=== PATIENT | male | born 1950 | race Caucasian/White ===

== ENCOUNTER → 2016-11-19 | Outpatient (CLI) | payer OTHER, MEDICARE, BC ==
[2016-11-19] VITALS (8 sets, daily range): BP systolic 130–146; BP diastolic 48–79; PULSE 45–55
[~2016-11-19] VITALS: Ht 175.3 cm; Wt 82.1 kg
[~2016-11-19] MED LIST: ANTIVERT 12.512.5 MG PO; ASPIRIN 81M81 MG/TA2 PO; DESYREL 100MG100 MG PO; FLOMAX 0.40.4 MG/CAP PO; LEXAPRO20 MG PO; LIPITOR 40MG TA40 MG PO; MELAT3MGTAB PO; MINIPRESS2 MG PO; MULTI VITAMINS1 TAB PO; NATURE'S BLEN1000 IU PO; NORVASC 10MG10 MG; NORVASC 10MG10 MG PO; NYSTATIN OR100 MU/ML PO; PRAVACHOL 20MG20 MG PO; PROTONIX 40MG T40 MG PO; RT SPIRIVA18 MCG IH; SALAGEN 5MG TAB5 MG PO
== END ==
LOC: COL.RAD 11-07 09:15
DX: N43.3 Hydrocele, unspecified (principal)
CPT/HCPCS: A9547

== ENCOUNTER → 2020-06-08 | Outpatient (CLI) | payer OTHER | LOC: COL.VAS 12:44 | DX: R06.02 Shortness of breath (principal) ==